=== PATIENT | male | born 1970 | race Caucasian/White ===

== ENCOUNTER → 2023-07-05 | Outpatient (CLI) | payer MEDICARE, MEDICAID ==
--- NOTE | 2023-07-05 18:17 | Diagnostic Imaging Report ---
EXAMINATION: Right femur radiographs, 2 views, 4 images. COMPARISON: None. HISTORY: 52-year-old male, right femur pain. FINDINGS: Please see separately dictated same day right hip radiographs for description of the right hip prosthesis and heterotopic ossification bridging across the hip joint. Sideplate and screw fixation hardware at the level of the right femur is intact. There is no identified acute fracture. There is no identified acute and aggressive appearing bone destruction. There is at least patellofemoral compartment osteoarthritis of the right knee. There is very limited evaluation of the right distal femur given difficulties with patient positioning and limited evaluation of the knee joint. IMPRESSION: 1. Please see separately dictated same day right hip radiograph report for description of the right hip prosthesis and extensive heterotopic ossification, including bridging across right hip joint. 2. No identified acute osseous abnormality of the right femur. 3. Limited evaluation of the distal femur given difficulties with patient positioning. Dictated by: Dictated on workstation # [id number]
--- NOTE | 2023-07-05 18:21 | Diagnostic Imaging Report ---
EXAMINATION: Right hip radiographs, 2 views. COMPARISON: None. HISTORY: 52-year-old male, increasing right leg pain. FINDINGS: There is a right hip prosthesis. There is no identified metallic acetabular cup. There is high attenuation material in the region of the acetabulum which potentially could reflect antibiotic impregnated material although correlation with surgical history would be needed. There are metallic pins near the level of the right acetabulum. The femoral head component of the hip prosthesis is abnormally medially angulated relative to expected alignment and the tip is abnormally laterally angulated and laterally positioned at the level of the proximal right femoral diaphysis. There was sideplate and screw fixation hardware along the right proximal femur as well as cerclage wires present. There is no identified acute fracture. There is prominent heterotopic ossification including bridging across the right hip joint. There is no identified acute and aggressive bone destruction. IMPRESSION: 1. Abnormal alignment of the femoral component of a right hip prosthesis, as described above. 2. No identified acute fracture or current radiographic evidence of acute aggressive osteomyelitis. 3. Extensive heterotopic ossification including bridging across the right hip joint. Dictated by: Dictated on workstation # [id number]
== END ==
LOC: RAD 11:11
PROVIDERS: ATTEND Physician Assistant
DX: L03.115 Cellulitis of right lower limb (principal); Z96.641 Presence of right artificial hip joint
CPT/HCPCS: 73502; 73552